=== PATIENT | female | born 1995 | race Caucasian/White ===

== ENCOUNTER 2016-10-15 10:47 | Inpatient (IN) | payer OTHER ==
[2016-10-15] MEDS ORDERED: PEPCID PO PRN (19:25)
[2016-10-15] MEDS ORDERED: KEFZOL 1 GM/D5W 50 ML IV PRN (19:25)
[2016-10-15] MEDS ORDERED: STADOL IV PRN ×2 (19:25)
[2016-10-15] MEDS ORDERED: ZOFRAN IV PRN (19:25)
[2016-10-15] MEDS ORDERED: AMBIEN PO PRN (19:25)
[2016-10-15] MEDS ORDERED: TYLENOL PO PRN (19:25)
[2016-10-15] MEDS ORDERED: BRETHINE SUBQ PRN (19:25)
[2016-10-15] MEDS ORDERED: PEPCID IV PRN (19:25)
[2016-10-15] MEDS: LR 1,000 ML IV SCH (21:18)
[2016-10-15 22:36] LABS: MANUAL DIFF NEEDED? NO
[2016-10-15 22:39] LABS: BASO% 0.1 % (0.0-0.8); EOS# 0.09 X1000 (0.0-0.7); EOS% 0.8 % (0.0-10.0); HEMOGLOBIN 12.1 g/dL (12.0-16.0); IMM GRAN# 0.14 X1000 (0.0-0.04); IMM GRAN% 1.3 % (0.0-0.5); LYMPH# 1.93 X1000 (1.2-3.4); LYMPH% 18.1 % (20.5-51.1); MCH 28.1 PG (27-31); MCHC 32.7 g/dL (33-37); MONO# 0.92 X1000 (0.11-0.59); MONO% 8.6 % (1.7-9.3); MPV 9.9 FL (7.4-10.4); NEUT% 71.1 % (42.2-75.2); PLT 218 X1000 (130-400)
[2016-10-15] MEDS: CYTOTEC PO ONE (22:52)
[2016-10-16] MEDS ORDERED: CYTOTEC PO SCH (01:00)
[2016-10-16 01:24] LABS: URINE SOURCE VOIDED
[2016-10-16 01:31] LABS: BILIRUBIN URINE NEGATIVE (NEGATIVE); BLOOD URINE 1+ (NEGATIVE); CLARITY CLEAR (CLEAR); COLOR YELLOW; LEUKOCYTES URINE TRACE (NEGATIVE); NITRITE URINE NEGATIVE (NEGATIVE); PROTEIN URINE NEGATIVE (NEGATIVE); SP GRAVITY URINE 1.025; UROBILINOGEN URINE 1+(1 mg/dL)
[2016-10-16] MEDS ORDERED: SODIUM CHLORIDE 0.9% INJ PRN (02:17)
[2016-10-16] MEDS ORDERED: PHENERGAN IV PRN (02:17)
[2016-10-16] MEDS: STADOL IV PRN ×2 (02:32→04:30)
[2016-10-16] MEDS ORDERED: MARCAINE 0.25% PF ONE (04:56)
[2016-10-16] MEDS ORDERED: FENTANYL-BUPIV-NS 2 MCG-0.1% 200 ML ONE (04:56)
[2016-10-16] MEDS: LR 1,000 ML IV SCH ×2 (05:30→07:16)
[2016-10-16] MEDS ORDERED: PITOCIN 30 UNITS/LR 500 ML IV SCH (07:00)
[2016-10-16] MEDS ORDERED: BOOSTRIX VACCINE IM ONE (10:37)
[2016-10-16] MEDS ORDERED: HYDROXYZINE IM PRN (10:37)
[2016-10-16] MEDS ORDERED: M-M-R II VACCINE SUBQ ONE (10:37)
[2016-10-16] MEDS ORDERED: BENADRYL PO PRN (10:37)
[2016-10-16] MEDS ORDERED: PITOCIN 30 UNITS/LR 500 ML IV ONE (10:37)
[2016-10-16] MEDS ORDERED: AMBIEN PO PRN (10:37)
[2016-10-16] MEDS ORDERED: CYTOTEC PO PRN (10:37)
[2016-10-16] MEDS ORDERED: HYDROXYZINE PO PRN (10:37)
[2016-10-16] MEDS ORDERED: MINERAL OIL MISC PRN (10:37)
[2016-10-16] MEDS ORDERED: BENADRYL IV PRN (10:37)
[2016-10-16] MEDS ORDERED: PERCOCET-10 PO PRN (10:37)
[2016-10-16] MEDS ORDERED: PITOCIN IM PRN (10:37)
[2016-10-16] MEDS ORDERED: NORCO-5 PO PRN (10:37)
[2016-10-16] MEDS ORDERED: PERI MEDS (DERMOPLAST/NUPERCAINAL/TUCKS) MISC PRN (10:37)
[2016-10-16] MEDS ORDERED: XYLOCAINE-MPF 1% INJ PRN (10:37)
[2016-10-16] MEDS ORDERED: PITOCIN 20 UNITS/LR 1,000 ML IV SCH (10:45)
[2016-10-16] MEDS: MOTRIN PO PRN (13:02)
[2016-10-16] MEDS: NORCO-10 PO PRN (13:03)
--- NOTE | 2016-10-16 13:37 | OPERATIVE NOTE ---
PROCEDURE DATE: 10/16/2016 DELIVERING PHYSICIAN: Kal Mir MD TYPE OF DELIVERY: Spontaneous controlled vaginal delivery. ANESTHESIA: Epidural. FINDINGS: At 10:12, a 7 pound 8 ounce male infant was delivered in occipitoanterior presentation. scores were 9 at one minute and 10 at five minutes. There was some meconium-stained fluid. It was light and nonparticulate. DELIVERY SUMMARY: Kaylah Banuelos is a 20-year-old, 2, para 0-0-1-0, at term gestation. Her blood type is A-positive. Rubella is equivocal. Hepatitis B surface antigen, HIV, and group B strep are negative. She was brought into labor and delivery last night for elective induction of labor. She received Cytotec. She progressed rapidly. At 8 cm, an epidural was placed. Membranes were ruptured, revealing nonparticulate light meconium-stained fluid. She became complete and began pushing. After approximately an hour of pushing, she began and a spontaneous controlled vaginal delivery occurred. Once the infant's head was delivered, the oropharynx was bulb suctioned. The nuchal cord was reduced. The shoulders and body delivered without complications. The cord was clamped and cut. The was handed to the nurses for further care and evaluation. Cord blood was obtained. The placenta was spontaneously delivered and was intact. There were no cervical lacerations. There was a small midline 2nd degree tear which was repaired using 2-0 Vicryl suture. Blood loss was approximately 200 mL. There were no complications. The patient remained in the LDR, recovering without difficulty.
[2016-10-16] MEDS: PERICOLACE PO SCH (20:42)
[2016-10-16] MEDS: CYTOTEC PO ONE (23:50)
[2016-10-17] MEDS: PERCOCET-5 PO PRN ×2 (00:39→12:20)
[2016-10-17] MEDS: MOTRIN PO PRN ×2 (00:39→12:20)
[2016-10-17 06:37] LABS: HEMATOCRIT 30.3 % (37.0-47.0); HEMOGLOBIN 9.8 g/dL (12.0-16.0); MCH 30.3 PG (27-31); MCHC 32.3 g/dL (33-37); MCV 93.8 FL (81-99); MPV 10.9 FL (7.4-10.4); RBC 3.23 XMIL (4.2-5.4)
[2016-10-17] MEDS: PRECARE PO SCH (08:45)
[2016-10-17] MEDS: NORCO-10 PO PRN (18:09)
[2016-10-17] MEDS: PERICOLACE PO SCH (20:05)
[2016-10-18] MEDS: NORCO-10 PO PRN ×2 (02:16→10:32)
[2016-10-18 08:37] VITALS: BP 126/83
[2016-10-18] MEDS: MOTRIN PO PRN (10:31)
[2016-10-18] MEDS: PRECARE PO SCH (10:32)
== END 2016-10-18 13:10 | disposition home or self-care (01) | DRG 775 ==
LOC: P.LD 19:12 → P.WC 10-16 13:18
PROVIDERS: ADMIT Obstetrics & Gynecology; ATTEND Obstetrics & Gynecology
PROC: 0KQM0ZZ Repair Perineum Muscle, Open Approach (ICD-10-PCS; 2016-10-16)
PROC: 3E033VJ Introduction of Other Hormone into Peripheral Vein, Percutaneous Approach (ICD-10-PCS; 2016-10-16)
PROC: 10E0XZZ Delivery of Products of Conception, External Approach (ICD-10-PCS; principal; 2016-10-16 07:30)
DX: O77.0 Labor and delivery complicated by meconium in amniotic fluid (principal); O99.334 Smoking (tobacco) complicating childbirth; F17.210 Nicotine dependence, cigarettes, uncomplicated; O69.1XX0 Labor and delivery complicated by cord around neck, with compression, not applicable or unspecified; Z37.0 Single live birth; Z3A.39 39 weeks gestation of pregnancy; O70.1 Second degree perineal laceration during delivery; Z23 Encounter for immunization
CPT/HCPCS: 59025; 81003; 85025; 85027; 86592; 90707; J0595; J2550; J2590; J7120; S0020